=== PATIENT | female | born 1955 ===

== ENCOUNTER 2017-06-20 08:58 | Outpatient (CLI) | payer OTHER | END 2017-06-20 09:11 | disposition home or self-care (01) | LOC: MRI 08:58 | DX: K59.09 Other constipation (principal); E11.9 Type 2 diabetes mellitus without complications; K44.9 Diaphragmatic hernia without obstruction or gangrene; K29.70 Gastritis, unspecified, without bleeding; R19.5 Other fecal abnormalities; K20.8 Other esophagitis; K64.8 Other hemorrhoids; Z86.010 Personal history of colon polyps | CPT/HCPCS: 72197; 74183 ==

== ENCOUNTER 2018-11-19 10:56 | Outpatient (CLI) | payer OTHER | END 2018-11-19 11:00 | disposition home or self-care (01) | LOC: SONOGRAMA 10:56 → MAMO-SONO 11:15 | DX: R10.2 Pelvic and perineal pain (principal) ==

== ENCOUNTER → 2018-11-30 | Outpatient (CLI) | payer OTHER | END | disposition home or self-care (01) | LOC: MRI 08:44 | DX: Z86.010 Personal history of colon polyps (principal) | CPT/HCPCS: 72195; 74181 ==